=== PATIENT | female | born 1945 | race Caucasian/White ===

== ENCOUNTER 2019-04-10 15:07 | Emergency (ER) | payer MEDICARE ==
[2019-04-10 15:42] LABS: ABSOLUTE NEUTROPHIL COUNT 4.26; BASO % 0.6 % (0-6); EOS % 1.3 % (0-6); GRAN % 45.8 % (47-80); HEMATOCRIT 43.8 % (35.0-47.0); HEMOGLOBIN 14.5 gm/dl (11.6-16.0); LYMPH % 40.5 % (16-45); MEAN CELL VOLUME 92.4 fl (81-97); MEAN CORPUSCULAR HEMOGLOBIN 30.6 pg (27-33); MEAN CORPUSCULAR HGB CONC 33.1 g/dl (32-36); MEAN PLATELET VOLUME 10.4 fl (7.4-10.4); MONO % 11.8 % (0-9); PLATELET COUNT 233 K/uL (130-400); RED BLOOD COUNT 4.74 M/uL (3.80-5.40); RED CELL DISTRIBUTION WIDTH 14.9 % (11.5-14.5); WHITE BLOOD COUNT W/O DIFF 9.3 K/uL (4.2-12.2)
[2019-04-10 15:55] LABS: CREATININE 1.1 mg/dL (0.5-0.9)
[2019-04-10 16:37] LABS: URINE APPEARANCE CLEAR; URINE BILIRUBIN NEGATIVE (NEGATIVE); URINE BLOOD NEGATIVE (NEGATIVE); URINE COLOR YELLOW; URINE GLUCOSE (UA) NEGATIVE (NEGATIVE); URINE KETONE NEGATIVE (NEGATIVE); URINE LEUKOCYTE ESTERASE NEGATIVE (NEGATIVE); URINE NITRITE NEGATIVE (NEGATIVE); URINE PROTEIN NEGATIVE (NEGATIVE); URINE UROBILINOGEN 0.2 E.U./dL (0.20 - 1.00)
--- NOTE | 2019-04-10 16:53 | Emergency Department Record ---
History of Present Illness - General Chief Complaint: Confusion Stated Complaint: STROKE SYMPTOMS Time Seen by Provider: 04/10/19 15:20 Source: Patient, Family Mode of Arrival: Ambulatory Limitations: No limitations - History of Present Illness Initial Comments: pt brought in because she has some confusion and amnesia of about 40 minutes within the last hour. she has a hx of the same in the past and was told it was a tia. she has no focal deficits MD Complaint: Altered mental status, Confusion Onset/Timin -: Hour(s) Consistency: Other (improving) Associated Symptoms: Denies other symptoms - Brittaney Coma Scale Eye Response: (4) Open spontaneously Motor Response: (6) Obeys commands Verbal Response: (4) Confused conversation [employer] Total: 14 - Symptoms of Stroke Symptoms of stroke: Unable to Think Clearly - Related Data Home Medications Medication Instructions Recorded Confirmed Last Taken Abatacept [Orencia] 50 mg SQ ASDIR 04/10/19 04/10/19 Unknown Aspirin [Aspir-Low] 81 mg PO DAILY 04/10/19 04/10/19 Unknown Folic Acid 0.4 mg PO DAILY 04/10/19 04/10/19 Unknown Furosemide [Lasix] 20 mg PO ASDIR 04/10/19 04/10/19 Unknown Metformin HCl 500 mg PO BID 04/10/19 04/10/19 Unknown Vitamin B Complex 1 each PO DAILY 04/10/19 04/10/19 Unknown Allergies Allergy/AdvReac Type Severity Reaction Status Date / Time cephalexin monohydrate Allergy HIVES Verified 04/10/19 15:18 [From Keflex] ciprofloxacin [From Cipro] Allergy HIVES Verified 04/10/19 15:18 Penicillins Allergy HIVES Verified 04/10/19 15:18 Travel Screening - Travel/Exposure Within Last 30 Days Have you traveled within the last 30 days?: No Review of Systems Reviewed: No additional complaints except as noted below Constitutional: Reports: As per HPI. Denies: Chills, Fever, Malaise, Night sweats, Weakness, Weight change Eyes: Reports: As per HPI. Denies: Eye discharge, Eye pain, Photophobia, Vision change ENT: Reports: As per HPI. Denies: Congestion, Dental pain, Ear pain, Epistaxis, Hearing loss, Throat pain Respiratory: Reports: As per HPI. Denies: Cough, Dyspnea, Hemoptysis, Stridor, Wheezes Cardiovascular: Reports: As per HPI. Denies: Arrhythmia, Chest pain, Dyspnea on exertion, Edema, Murmurs, Orthopnea, Palpitations, Paroxysmal nocturnal dyspnea, Rheumatic Fever, Syncope Endocrine: Reports: As per HPI. Denies: Fatigue, Heat or cold intolerance, Polydipsia, Polyuria Gastrointestinal: Reports: As per HPI. Denies: Abdominal pain, Constipation, Diarrhea, Hematemesis, Hematochezia, Melena, Nausea, Vomiting Genitourinary: Reports: As per HPI. Denies: Abnormal menses, Discharge, Dyspareunia, Dysuria, Frequency, Hematuria, Incontinence, Retention, Urgency Musculoskeletal: Reports: As per HPI. Denies: Arthralgia, Back pain, Gout, Join t swelling, Myalgia, Neck pain Skin: Reports: As per HPI. Denies: Bruising, Change in color, Change in hair/nails, Lesions, Pruritus, Rash Neurological: Reports: As per HPI, Confusion, Headache. Denies: Abnormal gait, Numbness, Paresthesias, Seizure, Tingling, Tremors, Vertigo, Weakness Psychiatric: Reports: As per HPI. Denies: Anxiety, Auditory hallucinations, Depression, Homicidal thoughts, Suicidal thoughts, Visual hallucinations Hematological/Lymphatic: Reports: As per HPI. Denies: Anemia, Blood Clots, Easy bleeding, Easy bruising, Swollen glands Past Medical History - SOCIAL HISTORY Smoking Status: Never smoker Alcohol Use: None Drug Use: None - RESPIRATORY Hx Respiratory Disorders: No - CARDIOVASCULAR Hx Cardio Disorders: Yes Hx Abnormal EKG: Yes Hx Hypertension: Yes Hx Irregular Heartbeat: (3rd degree AV block) Hx Pacemaker/Defib: Yes Comment:: lymphedema - NEURO Hx Neuro Disorders: Yes Hx CVA: Yes Hx Seizures: Yes - GI Hx GI Disorders: Yes Hx Diverticulitis: Yes - Hx Genitourinary Disorders: No - ENDOCRINE Hx Endocrine Disorders: Yes Hx Diabetes: Yes - MUSCULOSKELETAL Hx Musculoskeletal Disorders: Yes Hx Arthritis: Yes Hx Fibromyalgia: Yes Comment:: psoriatic, lupus, cervical/lumbar spondylosis - PSYCH Hx Psych Problems: No - HEMATOLOGY/ONCOLOGY Hx Hematology/Oncology Disorders: No Family Medical History Any Significant Family History?: Yes Hx Cancer: Mother, Children, Grandparents Hx Dementia: Father Hx Heart Disease: Father, Grandparents Hx Kidney Disease: Grandparents Hx Stroke: Grandparents Physical Exam - General General Appearance: Alert, Oriented x3, Cooperative, Mild distress - Head Head exam: Normal inspection - Eye Eye exam: Normal appearance, PERRL, EOMI Pupils: Normal accommodation - ENT ENT exam: Normal exam, Mucous membranes moist, Normal external ear exam, Normal orophraynx Ear exam: Normal external inspection. negative: External canal tenderness Nasal Exam: Normal inspection. negative: Discharge, Sinus tenderness Mouth exam: Normal external inspection, Tongue normal Teeth exam: Normal inspection. negative: Dental caries Throat exam: Normal inspection. negative: Tonsillar erythema, Tonsillar exudate - Neck Neck exam: Normal inspection, Full ROM. negative: Tenderness - Respiratory Respiratory exam: Normal lung sounds bilaterally. negative: Respiratory distress - Cardiovascular Cardiovascular Exam: Regular rate, Normal rhythm, Normal heart sounds - GI/Abdominal GI/Abdominal exam: Soft, Normal bowel sounds. negative: Tenderness - Rectal Rectal exam: Deferred - exam: Deferred - Extremities Extremities exam: Normal inspection, Full ROM, Normal capillary refill. negative: Tenderness - Back Back exam: Reports: Normal inspection, Full ROM. Denies: Muscle spasm, Rash noted, Tenderness - Neurological Neurological exam: Alert, CN II-XII intact, Normal gait, Oriented X3, Other (amnesia and some confusion) - Psychiatric Psychiatric exam: Normal affect, Normal mood - Skin Skin exam: Dry, Intact, Normal color, Warm Stroke Assessment - NIH Stroke Scale 1a. Level of Consciousness: (0) Alert 1b. LOC Questions: (0) Answers Correctly 1c. LOC Commands: (0) Performs Tasks Correctly 2. Best Gaze: (0) Normal 3. Visual: (0) No Visual Loss 4. Facial Palsy: (0) Normal Symmetrical Movement 5a. Motor Arm Left: (0) No Drift 5b. Motor Arm Right: (0) No Drift 6a. Motor Leg Left: (0) No Drift 6b. Motor Leg Right: (0) No Drift 7. Limb Ataxia: (0) Absent 8. Sensory: (0) Normal 9. Best Language: (0) No Aphasia 10. Dysarthria: (0) Normal 11. Extinction/Inattention: (0) No Abnormality NIH Stoke Scale Total: 0 Course Vital Signs 04/10/19 04/10/19 15:12 15:52 Temperature 97.4 F L Pulse Rate 93 H Pulse Rate [ 72 Pulse Ox Probe] Respiratory 20 18 Rate Blood Pressure 146/96 Blood Pressure 138/97 [Left Arm] Pulse Ox 97 97 - Reevaluation(s) Reevaluation #1: 04/10/19 16:53 pts confusion has cleared and she feels better. she still has amnesia of about 40 minutes this afternoon. Reevaluation #2: 04/10/19 17:17 d/w dr alberts and dr bloom Medical Decision Making - Lab Data Result diagrams: 04/10/19 15:16 04/10/19 15:16 Lab Results 04/10/19 04/10/19 04/10/19 Range/Units 15:16 15:16 16:34 WBC 9.3 (4.2-12.2) K/uL RBC 4.74 (3.80-5.40) M/uL Hgb 14.5 (11.6-16.0) gm/dl Hct 43.8 (35.0-47.0) % MCV 92.4 (81-97) fl MCH 30.6 (27-33) pg MCHC 33.1 (32-36) g/dl RDW 14.9 H (11.5-14.5) % Plt Count 233 (130-400) K/uL MPV 10.4 (7.4-10.4) fl Gran % 45.8 L (47-80) % Lymphocytes % 40.5 (16-45) % Monocytes % 11.8 H (0-9) % Eosinophils % 1.3 (0-6) % Basophils % 0.6 (0-6) % Absolute Neutrophils 4.26 Sodium 141 (136-145) mmol/L Potassium 3.8 (3.4-4.5) mmol/L Chloride 103 (98-107) mmol/L Carbon Dioxide 23.0 (22-29) mmol/L Anion Gap 15.0 (7-16) BUN 27 H (8-23) mg/dL Creatinine 1.1 H (0.5-0.9) mg/dL Estimated GFR 52 mL/min Random Glucose 113 H (74-109) mg/dL Calcium 10.2 (8.8-10.2) mg/dL Urine Color Yellow Urine Appearance Clear Urine pH 5.5 (5.0-8.0) Ur Specific [place] <= 1.005 (1.002-1.030) Urine Protein Negative (NEGATIVE) Urine Glucose (UA) Negative (NEGATIVE) Urine Ketones Negative (NEGATIVE) Urine Blood Negative (NEGATIVE) Urine Nitrite Negative (NEGATIVE) Urine Bilirubin Negative (NEGATIVE) Urine Urobilinogen 0.2 (0.20 - 1.00) E.U./dL Ur Leukocyte Esterase Negative (NEGATIVE) Disposition Disposition: Transfer Clinical Impression: Amnesia Disposition: Acute Care Hospital Transfer Transfer To: [facility] Reason For Transfer: needs neurology Accepting Physician: akilah alberts and dr bloom Time Discussed w/Accepting Physician: 17:17 Forms: Patient Portal Access Quality - Quality Measures Quality Measures: N/A - Blood Pressure Screening Does Patient Have Any of the Following: Active Dx of HTN Blood Pressure Classification: Hypertensive Reading Systolic Measurement: 146 Diastolic Measurement: 96 Screening for High Blood Pressure: Patient Exclusion, Hx of HTN [G9744]
[2019-04-10 17:23] LABS: INR 2.9; PROTHROMBIN TIME (PATIENT) 27.9 SECONDS (9.5-12.1)
--- NOTE | 2019-04-12 10:46 | CT SCAN REPORT ---
EXAM: CT OF THE HEAD WITHOUT CONTRAST HISTORY: CONFUSION AND MEMORY LOSS. TECHNIQUE: Standard CT imaging of the head without intravenous contrast was obtained. Comparison: None. Hand dominance: Right. FINDINGS: The ventricles and sulci are normal for patient's age. No intracranial hemorrhage or extraaxial fluid collection is identified. The rizo white matter differentiation is maintained. No significant mass effect or midline shift. Minimal mucosal thickening in the maxillary sinuses with a small lobulated density in the left maxillary sinus likely a retention cyst or possibly a polyp. There is a tiny amount of fluid in the left mastoid air cells. IMPRESSION: NO EVIDENCE FOR ACUTE INTRACRANIAL ABNORMALITY. JOB NUMBER: [id number] [facility]
== END 2019-04-10 18:11 | disposition short-term general hospital (02) ==
LOC: ER 15:07
DX: R41.3 Other amnesia (principal); R41.82 Altered mental status, unspecified; R11.0 Nausea; E11.9 Type 2 diabetes mellitus without complications; I10 Essential (primary) hypertension; Z95.0 Presence of cardiac pacemaker; Z79.84 Long term (current) use of oral hypoglycemic drugs; Z86.73 Personal history of transient ischemic attack (TIA), and cerebral infarction without residual deficits; Z79.01 Long term (current) use of anticoagulants
CPT/HCPCS: 70450; 80048; 81003; 85025; 85610; 93005; 93010; 99285